=== PATIENT | male | born 1975 | race American Indian/Alaskan Native ===

== ENCOUNTER 2017-03-31 09:23 | Outpatient (CLI) | payer BC ==
--- NOTE | 2017-03-31 13:07 | Fluoroscopy Report ---
Small bowel series: History: Crohn's disease. Findings: There is rapid transit of barium noted from the distal duodenum to ileocecal region. No extrinsic or intrinsic filling defects are noted. No stricture. No extravasation of contrast. Cecum appears to be at the high level compared to normal position. Impression: Essentially negative small bowel follow-through
== END 2017-03-31 09:24 | disposition home or self-care (01) ==
LOC: FLUORO 09:23
PROVIDERS: ATTEND Internal Medicine Gastroenterology
DX: K50.90 Crohn's disease, unspecified, without complications (principal)
CPT/HCPCS: 74250

== ENCOUNTER 2018-12-23 20:25 | Emergency (ER) | payer SELFPAY ==
[2018-12-23 20:33] VITALS: BP 146/100
== END 2018-12-23 20:32 | disposition left against medical advice (07) ==
LOC: ED 20:25
DX: R51 Headache (principal); Z53.21 Procedure and treatment not carried out due to patient leaving prior to being seen by health care provider

== ENCOUNTER 2019-04-07 05:01 | Emergency (ER) | payer SELFPAY ==
[2019-04-07] MEDS ORDERED: SODIUM CHLORIDE 0.9% 1000 ML 1,000 ML IV ONE (05:08)
[2019-04-07] MEDS ORDERED: SODIUM CHLORIDE 0.9% 1000 ML 1,000 ML ONE (05:11)
[2019-04-07 05:39] LABS: Hematocrit 43.5 % (35.5-45.6); Mean Corpuscular HGB Conc 35 % (32-34); Mean Corpuscular Volume 88 fl (84-94); Platelet Count 288 K/mm3 (140-440); Red Blood Count 4.93 M/mm3 (3.65-5.03); Red Cell Distribution Width 13.5 % (13.2-15.2)
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
[2019-04-07 06:00] LABS: Alanine Aminotransferase 56 units/L (7-56); Albumin 4.5 g/dL (3.9-5); BUN/Creatinine Ratio 13; Blood Urea Nitrogen 13 mg/dL (9-20); Calcium 8.5 mg/dL (8.4-10.2); Hemolysis Index 27
[2019-04-07] MEDS ORDERED: POTASSIUM CHLORIDE ER 20 MEQ TAB PO ONE (06:03)
[2019-04-07 06:33] LABS: Platelet Estimate Consistent w Auto; RBC Morphology Normal; Total Cells Counted 100
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
[2019-04-07 07:59] VITALS: BP 140/83
== END 2019-04-07 07:58 | disposition home or self-care (01) ==
LOC: ED 05:01
DX: S71.001A Unspecified open wound, right hip, initial encounter (principal); I10 Essential (primary) hypertension; K21.9 Gastro-esophageal reflux disease without esophagitis; Z79.899 Other long term (current) drug therapy; W34.00XA Accidental discharge from unspecified firearms or gun, initial encounter; Y93.89 Activity, other specified; Y92.89 Other specified places as the place of occurrence of the external cause; Y99.8 Other external cause status
CPT/HCPCS: 36415; 73552; 74018; 74177; 80053; 85007; 85025; 86850; 86900; 86901; 96374; 99285; J7030; Q9967; 80320; G0480